=== PATIENT | male | born 1950 | race African-American/Black ===

== ENCOUNTER 2016-05-14 19:50 | Emergency (ER) | payer OTHER ==
[2016-05-14] MEDS ORDERED: Enalaprilat IV* 1.25 MG/ML 2 ML VIAL (2.5 MG) IV ONE ×2 (20:36→21:15)
[2016-05-14 20:53] LABS: Hematocrit 44 % (42-52); Hemoglobin 14.6 g/dl (14.0-18.0); Mean Corpuscular HGB Conc 33 g/dl (31-36); Mean Corpuscular Hemoglobin 31 pg (27-31); Mean Corpuscular Volume 94 fL (80-94); Mean Platelet Volume 9 um3 (7.4-10.4); Red Blood Count 4.72 10^6/ul (4.0-5.4); Red Cell Distribution Width 14 % (10.5-15); White Blood Count 6.1 10^3/ul (3.5-10.8)
[2016-05-14 21:04] LABS: Albumin 3.7 g/dL (3.2-5.2); BUN/Creatinine Ratio 14.1 (8-20); Calcium 8.9 mg/dL (8.6-10.3); EGFR African American 106.9 (>60); EGFR Non-African American 83.1 (>60); Globulin 4.4 g/dL (2-4); Potassium 3.6 mmol/L (3.5-5.0); Total Bilirubin 0.5 mg/dL (0.2-1.0); Total Protein 8.1 g/dL (6.4-8.9)
[2016-05-14 21:05] LABS: Troponin I 0.02 ng/mL (<0.04)
[2016-05-14 21:14] LABS: TSH (Thyroid Stimulating Horm) 5.08 mcIU/mL (0.34-5.60)
[2016-05-14] MEDS ORDERED: Hydrochlorothiazide TAB* 25 MG PO ONE (23:31)
[2016-05-14] MEDS ORDERED: Hydrochlorothiazide TAB* 25 MG ONE (23:33)
[2016-05-14 23:41] VITALS: BP 157/107
--- NOTE | 2016-05-15 11:11 | ED ---
Mj Hanna Michael, scribed for Isac James MD on 05/14/16 at 2043 . Hypertension - HPI Summary HPI Summary: 65 y/o male comes to the ED presenting with high blood pressure this evening. The pt's nurse was bedside and states that his blood pressure gets routinely checked since he started HTN medication on 04/23. The elevated blood pressure was not aggravated by anything. Currently at the ED, the pt's blood pressure is 174/133. The pt was admitted for HTN at the end of March per pt's nurse. - History of Current Complaint Chief Complaint: EDHypertension Stated Complaint: SENT BY DR CELIS-HIGH BLOOD PRESSURE Time Seen by Provider: 05/14/16 20:27 Hx Obtained From: Patient, Medical Records Onset/Duration: Started Hours Ago Timing: Intermittent Aggravating Factor(s): Nothing Associated Signs & Symptoms: Other: - HTN - Allergies/Home Medications Allergies/Adverse Reactions: Allergies Allergy/AdvReac Type Severity Reaction Status Date / Time No Known Allergies Allergy Verified 05/14/16 21:41 Home Medications: Home Medications Levothyroxine TAB* [Synthroid TAB*] 25 mcg PO DAILY 05/14/16 [History Confirmed 05/14/16] PMH/Surg Hx/FS Hx/Imm Hx Endocrine/Hematology History: Denies: Hx Diabetes Cardiovascular History: Reports: Hx Hypertension Denies: Hx Angina, Hx Congestive Heart Failure, Hx Coronary Artery Disease, Hx Hypercholesterolemia, Hx Myocardial Infarction, Hx Valvular Heart Disease Respiratory History: Denies: Hx Asthma, Hx Chronic Obstructive Pulmonary Disease (COPD) GI History: Denies: Other GI Disorders History: Denies: Hx Renal Disease Musculoskeletal History: Reports: 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, R hip pain, Other Musculoskeletal History - L hip replacement Neurological History: Denies: Other Neuro Impairments/Disorders - Surgical History Surgery Procedure, Year, and Place: LT HIP/BILATERAL HERNIA REPAIRS - Immunization History Date of Tetanus Vaccine: unknown Date of Influenza Vaccine: unknown Infectious Disease History: No Infectious Disease History: Denies: Hx Hepatitis, Hx of Known/Suspected MRSA, Traveled Outside the [place] in Last 30 Days - Family History Known Family History: Positive: None Negative: Cardiac Disease Family History: no hx of cancer - Social History Occupation: Unemployed Lives: With Family Alcohol Use: None Substance Use Type: Reports: None Substance Use Comment - Amount & Last Used: hx of cocaine use 8 years ago Smoking Status (MU): Former Smoker Type: Cigarettes Review of Systems Negative: Fever Positive: Other - HTN All Other Systems Reviewed And Are Negative: Yes Physical Exam Triage Information Reviewed: Yes Vital Signs On Initial Exam: Initial Vitals Temp Pulse Resp BP Pulse Ox 98.2 F 70 22 174/133 98 05/14/16 19:53 05/14/16 19:53 05/14/16 19:53 05/14/16 19:53 05/14/16 19:53 Vital Signs Reviewed: Yes Appearance: Positive: Well-Appearing, No Pain Distress Skin: Positive: Warm, Skin Color Reflects Adequate Perfusion, Dry Head/Face: Positive: Normal Head/Face Inspection Eyes: Positive: Normal ENT: Positive: Normal ENT inspection Neck: Positive: Supple, Nontender Respiratory/Lung Sounds: Positive: Clear to Auscultation, Breath Sounds Present Cardiovascular: Positive: RRR Abdomen Description: Positive: Nontender, Soft Bowel Sounds: Positive: Present Musculoskeletal: Positive: Normal Neurological: Positive: Normal Psychiatric: Positive: Normal, Affect/Mood Appropriate Diagnostics - Vital Signs Vital Signs Temp Pulse Resp BP Pulse Ox 05/14/16 19:53 98.2 F 70 22 174/133 98 - Laboratory Lab Results: Lab Results 05/14/16 05/14/16 05/14/16 Range/Units 20:25 20:25 20:25 WBC 6.1 (3.5-10.8) 10^3/ul RBC 4.72 (4.0-5.4) 10^6/ul Hgb 14.6 (14.0-18.0) g/dl Hct 44 (42-52) % MCV 94 (80-94) fL MCH 31 (27-31) pg MCHC 33 (31-36) g/dl RDW 14 (10.5-15) % Plt Count 198 (150-450) 10^3/ul MPV 9 (7.4-10.4) um3 Neut % (Auto) 52.8 (38-83) % Lymph % (Auto) 34.7 (25-47) % [place] % (Auto) 11.2 H (1-9) % Eos % (Auto) 1.0 (0-6) % Baso % (Auto) 0.3 (0-2) % Absolute Neuts (auto) 3.2 (1.5-7.7) 10^3/ul Absolute Lymphs (auto) 2.1 (1.0-4.8) 10^3/ul Absolute Monos (auto) 0.7 (0-0.8) 10^3/ul Absolute Eos (auto) 0.1 (0-0.6) 10^3/ul Absolute Basos (auto) 0 (0-0.2) 10^3/ul Absolute Nucleated RBC 0 10^3/ul Nucleated RBC % 0.1 Sodium 137 (133-145) mmol/L Potassium 3.6 (3.5-5.0) mmol/L Chloride 105 (101-111) mmol/L Carbon Dioxide 26 (22-32) mmol/L Anion Gap 6 (2-11) mmol/L BUN 13 (6-24) mg/dL Creatinine 0.92 (0.67-1.17) mg/dL Est GFR ( Amer) 106.9 (>60) Est GFR (Non-Af Amer) 83.1 (>60) BUN/Creatinine Ratio 14.1 (8-20) Glucose 87 (70-100) mg/dL Lactic Acid 1.0 (0.5-2.0) mmol/L Calcium 8.9 (8.6-10.3) mg/dL Total Bilirubin 0.50 (0.2-1.0) mg/dL AST 52 H (13-39) U/L ALT 92 H (7-52) U/L Alkaline Phosphatase 50 (34-104) U/L Troponin I 0.02 (<0.04) ng/mL Total Protein 8.1 (6.4-8.9) g/dL Albumin 3.7 (3.2-5.2) g/dL Globulin 4.4 H (2-4) g/dL Albumin/Globulin Ratio 0.8 L (1-3) TSH 5.08 (0.34-5.60) mcIU/mL Result Diagrams: 05/14/16 20:25 05/14/16 20:25 Lab Statement: Any lab studies that have been ordered have been reviewed, and results considered in the medical decision making process. - EKG EK EKG Rhythm: Sinus Rhythm - 63 bpm EKG Interpretation: unchanged 03/28/16. LVH with strain pattern Hypertension Course/Dx - Course Course Of Treatment: J Luis Jackson presented asymptomatic after his checked his BP and found it to be high at home. He was found incidentally to have high BP about a month jes and started on medications. According to Dr. Elizabeth's note he was D/C'd on atenolol, hydrochlorthiazide and amlodipine but the patient brought in his bottles and there is no hydrochlorthiazide. There was no evidence of end organ damage on studies done here in the ED including ecg and labs and he remained aymptomatic. He responded to vasotec and I sent him a script for the HCTZ. - Diagnoses Provider Diagnoses: Hypertension Discharge - Discharge Plan Condition: Stable Disposition: HOME Prescriptions: Hydrochlorothiazide TAB* [Hydrodiuril TAB*] 25 mg PO DAILY #20 tab Patient Education Materials: Hypertension (ED) Referrals: Paul Celis MD [Primary Care Provider] - Additional Instructions: You will follow up with Dr. Celis within the next 2-3 days. The documentation as recorded by the Mj calderon Michael accurately reflects the service I personally performed and the decisions made by me, Isac James MD.
== END 2016-05-14 23:39 | disposition home or self-care (01) ==
LOC: ED 19:50
DX: I10 Essential (primary) hypertension (principal); Z87.891 Personal history of nicotine dependence
CPT/HCPCS: 36415; 80053; 83605; 84443; 84484; 85025; 93005; 96374; 99283; A9270-GY

== ENCOUNTER 2017-02-04 15:41 | Emergency (ER) | payer OTHER ==
[2017-02-04] MEDS ORDERED: Metoprolol Tartrate IV* 1 MG/ML 5 ML VIAL IV ONE (17:36)
[2017-02-04 18:00] LABS: Hematocrit 41 % (42-52); Mean Corpuscular HGB Conc 34 g/dl (31-36); Mean Corpuscular Hemoglobin 32 pg (27-31); Mean Corpuscular Volume 94 fL (80-94); Mean Platelet Volume 8 um3 (7.4-10.4); Red Blood Count 4.38 10^6/ul (4.0-5.4); Red Cell Distribution Width 14 % (10.5-15); White Blood Count 5.5 10^3/ul (3.5-10.8)
[2017-02-04 18:17] LABS: Albumin 3.7 g/dL (3.2-5.2); BUN/Creatinine Ratio 12.5 (8-20); C Reactive Protein 20.04 mg/L (< 5.00); EGFR African American 101.4 (>60); EGFR Non-African American 78.9 (>60); Globulin 4.5 g/dL (2-4); Potassium 3.2 mmol/L (3.5-5.0); Total Bilirubin 0.6 mg/dL (0.2-1.0); Total Protein 8.2 g/dL (6.4-8.9)
[2017-02-04 18:18] LABS: Troponin I 0.02 ng/mL (<0.04)
--- NOTE | 2017-02-04 18:35 | RAD ---
INDICATION: Congestion, shortness of breath. COMPARISON: January 28, 2017 CT abdomen. December 27, 2016 chest radiograph. TECHNIQUE: Dual energy PA and routine lateral views of the chest were obtained. REPORT: Clear lungs and pleural spaces. Negative for pneumothorax. The heart, pulmonary vasculature, and mediastinal contours are unremarkable. Unremarkable osseous structures and soft tissue contours. IMPRESSION: No evidence for acute intrathoracic disease.
[2017-02-04] MEDS ORDERED: amLODIPine TAB* 5 MG PO ONE ×2 (18:49→21:28)
[2017-02-04] MEDS ORDERED: Hydrochlorothiazide TAB* 50 MG PO ONE (18:49)
--- NOTE | 2017-02-04 19:18 | ED ---
Triston Hanna Nilda, scribed for Isac James MD on 02/04/17 at 1741 . Respiratory - HPI Summary HPI Summary: This patient is a 66 year old M presenting to [facility] accompanied by girlfriend with a chief complaint of intermittent dyspnea for the past 2-3 weeks. The patient rates the pain 9/10 in severity. Symptoms aggravated by recumbent position and alleviated by upright position. Patient reports left back pain and occasional cough. Patient denies edema, rhinorrhea, CP, and recent trauma. Last night patient could not sleep because of orthopnea. Per girlfriend, patient is currently on blood pressure and fluid retention medications. PMHx includes HTN. - History of Current Complaint Chief Complaint: EDUpperRespComplaint Stated Complaint: SOB/CANT SLEEP Time Seen by Provider: 02/04/17 17:18 Hx Obtained From: Patient, Family/Collateral Clerk - girlfriend Onset/Duration: Gradual Onset, Lasting Weeks - 2-3 weeks Timing: Intermittent Episodes Lasting: - until patient gets up from lying down Current Severity: Severe Pain Intensity: 9 Character: Cough (Nonproductive), Orthopnea Sputum Amount: None Aggravating Factor(s): Recumbent Position Alleviating Factor(s): Upright Position - Allergy/Home Medications Allergies/Adverse Reactions: Allergies Allergy/AdvReac Type Severity Reaction Status Date / Time No Known Allergies Allergy Verified 05/14/16 21:41 PMH/Surg Hx/FS Hx/Imm Hx Endocrine/Hematology History: Denies: Hx Diabetes Cardiovascular History: Reports: Hx Hypertension Denies: Hx Angina, Hx Congestive Heart Failure, Hx Coronary Artery Disease, Hx Hypercholesterolemia, Hx Myocardial Infarction, Hx Valvular Heart Disease Respiratory History: Denies: Hx Asthma, Hx Chronic Obstructive Pulmonary Disease (COPD) GI History: Denies: Other GI Disorders History: Denies: Hx Renal Disease Musculoskeletal History: Reports: 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, R hip pain, Other Musculoskeletal History - L hip replacement Neurological History: Denies: Other Neuro Impairments/Disorders - Cancer History Cancer Type, Location and Year: prostate - Surgical History Surgery Procedure, Year, and Place: LT HIP/BILATERAL HERNIA REPAIRS - Immunization History Date of Tetanus Vaccine: unknown Date of Influenza Vaccine: unknown Infectious Disease History: No Infectious Disease History: Denies: Hx Hepatitis, Hx of Known/Suspected MRSA, Traveled Outside the [place] in Last 30 Days - Family History Known Family History: Positive: Other - no hx of cancer Negative: Cardiac Disease, Hypertension, Diabetes Family History: no hx of cancer - Social History Alcohol Use: None Substance Use Type: Reports: None Substance Use Comment - Amount & Last Used: hx of cocaine use 8 years ago Smoking Status (MU): Former Smoker Type: Cigarettes Review of Systems Positive: Other - negative recent trauma Negative: Nasal Discharge Negative: Chest Pain Positive: Cough, Other - orthopnea Positive: Other - left back pain. Negative: Edema All Other Systems Reviewed And Are Negative: Yes Physical Exam Triage Information Reviewed: Yes Vital Signs On Initial Exam: Initial Vitals Temp Pulse Resp BP Pulse Ox 98.4 F 82 19 160/126 93 02/04/17 15:44 02/04/17 15:44 02/04/17 15:44 02/04/17 15:44 02/04/17 15:44 Vital Signs Reviewed: Yes Appearance: Positive: Well-Appearing, No Pain Distress, Obese Skin: Positive: Warm, Skin Color Reflects Adequate Perfusion, Dry Head/Face: Positive: Normal Head/Face Inspection Eyes: Positive: Normal ENT: Positive: Normal ENT inspection Neck: Positive: Supple, Nontender Respiratory/Lung Sounds: Positive: Clear to Auscultation, Breath Sounds Present Cardiovascular: Positive: RRR. Negative: Leg Edema Left, Leg Edema Right Abdomen Description: Positive: Nontender, Soft Bowel Sounds: Positive: Present Musculoskeletal: Positive: Normal. Negative: Edema Left, Edema Right Neurological: Positive: Normal Psychiatric: Positive: Normal, Affect/Mood Appropriate Diagnostics - Vital Signs Vital Signs Temp Pulse Resp BP Pulse Ox 02/04/17 15:44 98.4 F 82 19 160/126 93 - Laboratory Lab Results: Lab Results 02/04/17 02/04/17 02/04/17 Range/Units 17:45 17:45 17:45 WBC 5.5 (3.5-10.8) 10^3/ul RBC 4.38 (4.0-5.4) 10^6/ul Hgb 14.0 (14.0-18.0) g/dl Hct 41 L (42-52) % MCV 94 (80-94) fL MCH 32 H (27-31) pg MCHC 34 (31-36) g/dl RDW 14 (10.5-15) % Plt Count 212 (150-450) 10^3/ul MPV 8 (7.4-10.4) um3 Neut % (Auto) 61.0 (38-83) % Lymph % (Auto) 24.7 L (25-47) % [place] % (Auto) 13.3 H (1-9) % Eos % (Auto) 0.7 (0-6) % Baso % (Auto) 0.3 (0-2) % Absolute Neuts (auto) 3.4 (1.5-7.7) 10^3/ul Absolute Lymphs (auto) 1.4 (1.0-4.8) 10^3/ul Absolute Monos (auto) 0.7 (0-0.8) 10^3/ul Absolute Eos (auto) 0 (0-0.6) 10^3/ul Absolute Basos (auto) 0 (0-0.2) 10^3/ul Absolute Nucleated RBC 0 10^3/ul Nucleated RBC % 0.1 INR (Anticoag Therapy) (0.89-1.11) D-Dimer, Quantitative (Less Than 230) ng/mL Sodium 137 (133-145) mmol/L Potassium 3.2 L (3.5-5.0) mmol/L Chloride 103 (101-111) mmol/L Carbon Dioxide 29 (22-32) mmol/L Anion Gap 5 (2-11) mmol/L BUN 12 (6-24) mg/dL Creatinine 0.96 (0.67-1.17) mg/dL Est GFR ( Amer) 101.4 (>60) Est GFR (Non-Af Amer) 78.9 (>60) BUN/Creatinine Ratio 12.5 (8-20) Glucose 93 (70-100) mg/dL Lactic Acid (0.5-2.0) mmol/L Calcium 9.0 (8.6-10.3) mg/dL Total Bilirubin 0.60 (0.2-1.0) mg/dL AST 33 (13-39) U/L ALT 49 (7-52) U/L Alkaline Phosphatase 47 (34-104) U/L Troponin I 0.02 (<0.04) ng/mL C-Reactive Protein 20.04 H (< 5.00) mg/L B-Natriuretic Peptide 40 ( - 100) pg/mL Total Protein 8.2 (6.4-8.9) g/dL Albumin 3.7 (3.2-5.2) g/dL Globulin 4.5 H (2-4) g/dL Albumin/Globulin Ratio 0.8 L (1-3) 02/04/17 02/04/17 Range/Units 17:45 17:45 WBC (3.5-10.8) 10^3/ul RBC (4.0-5.4) 10^6/ul Hgb (14.0-18.0) g/dl Hct (42-52) % MCV (80-94) fL MCH (27-31) pg MCHC (31-36) g/dl RDW (10.5-15) % Plt Count (150-450) 10^3/ul MPV (7.4-10.4) um3 Neut % (Auto) (38-83) % Lymph % (Auto) (25-47) % [place] % (Auto) (1-9) % Eos % (Auto) (0-6) % Baso % (Auto) (0-2) % Absolute Neuts (auto) (1.5-7.7) 10^3/ul Absolute Lymphs (auto) (1.0-4.8) 10^3/ul Absolute Monos (auto) (0-0.8) 10^3/ul Absolute Eos (auto) (0-0.6) 10^3/ul Absolute Basos (auto) (0-0.2) 10^3/ul Absolute Nucleated RBC 10^3/ul Nucleated RBC % INR (Anticoag Therapy) 0.93 (0.89-1.11) D-Dimer, Quantitative 304 H (Less Than 230) ng/mL Sodium (133-145) mmol/L Potassium (3.5-5.0) mmol/L Chloride (101-111) mmol/L Carbon Dioxide (22-32) mmol/L Anion Gap (2-11) mmol/L BUN (6-24) mg/dL Creatinine (0.67-1.17) mg/dL Est GFR ( Amer) (>60) Est GFR (Non-Af Amer) (>60) BUN/Creatinine Ratio (8-20) Glucose (70-100) mg/dL Lactic Acid 1.4 (0.5-2.0) mmol/L Calcium (8.6-10.3) mg/dL Total Bilirubin (0.2-1.0) mg/dL AST (13-39) U/L ALT (7-52) U/L Alkaline Phosphatase (34-104) U/L Troponin I (<0.04) ng/mL C-Reactive Protein (< 5.00) mg/L B-Natriuretic Peptide ( - 100) pg/mL Total Protein (6.4-8.9) g/dL Albumin (3.2-5.2) g/dL Globulin (2-4) g/dL Albumin/Globulin Ratio (1-3) Result Diagrams: 02/04/17 17:45 02/04/17 17:45 Lab Statement: Any lab studies that have been ordered have been reviewed, and results considered in the medical decision making process. - Radiology CXR Radiology Interpretation Completed By: Radiologist - No evidence of acute intrathoracic disease. ED Physician reviewed and agrees with this report. - EKG 1802 Cardiac Rate: NL - 68 bpm EKG Rhythm: Sinus Rhythm EKG Interpretation: LVH EKG Comparison: No Significant Change - from 05/14/2016 Disposition - Course Course Of Treatment: Mr. Jackson presented with a C/O SOB mostly when he is lying down for the last couple of weeks. He hasn't been taking his blood pressure medications and he presented quite high. His d-dimer was a bit elevated and he is awaiting CTA. Assuming he has no PE, I expect he will go home to F/U with his PMD for BP control. - Diagnoses Provider Diagnoses: Hypertension Discharge - Discharge Plan Condition: Stable Disposition: OTHER Discharge Disposition Comment: Change of Shift Referrals: Paul Celis MD [Primary Care Provider] - The documentation as recorded by the Triston calderon Nilda accurately reflects the service I personally performed and the decisions made by me, Isac James MD.
[2017-02-04] MEDS ORDERED: Iohexol 350* (CONTRAST) 500 ML MDV IV ONE (19:26)
[2017-02-04 19:36] LABS: Urine Bilirubin Negative (Negative); Urine Glucose Negative (Negative); Urine Nitrite Negative (Negative)
--- NOTE | 2017-02-04 20:20 | RAD ---
INDICATION: Difficulty breathing. Pain to the RIGHT side of the back. COMPARISON: February 04, 2017 chest radiograph and January 28, 2017 CT abdomen. TECHNIQUE: Multidetector CT images were obtained from the lung apices to the upper abdomen with 81 mL Omnipaque 350 IV contrast. Pulmonary angiogram protocol. Multiplanar reformation including with maximum intensity projection. REPORT: Minimal bibasilar dependent atelectasis. Negative for alveolar consolidation suspicious for pneumonia, focal pulmonary lesions, pleural effusions, pneumothorax. Negative for thoracic lymphadenopathy. Small calcified RIGHT hilar and mediastinal lymph nodes. Negative for cardiomegaly or pericardial effusion. Normal diameter thoracic aorta. No evidence for dissection of the thoracic aorta. No filling defects are identified from the main to the subsegmental pulmonary arteries to indicate presence of a pulmonary embolism. Unremarkable Limited images through the upper abdomen. IMPRESSION: 1. No evidence for pulmonary embolism. 2. No evidence for pneumonia. 3. Stigmata of prior granulomatous disease. 4. No acute pathologic process of the thorax evident.
[2017-02-04] MEDS ORDERED: Atenolol TAB* 50 MG PO ONE (21:27)
[2017-02-04] MEDS ORDERED: Hydrochlorothiazide TAB* 25 MG PO ONE (21:27)
[2017-02-04 21:52] VITALS: BP 171/102
--- NOTE | 2017-02-06 12:51 | ED ---
I, Bhupinder Holguin, scribed for Kellee Jett MD on 02/04/17 at 2038 . Progress - Progress Note Progress Note: This is a 66yo male, signout pt from Dr. James. Pt has been seen for CC of SOB for 2-3 weeks with right flank/ right back pain. Pt states that his pain is now better. Denies any fever but girlfriend reports pt has been feeling warm. He has been recently dxed with Prostate CA but hasnt yet started any Tx. Pt is in the process of setting up appointments for follow up and further evaluations. PMHx of HTN. Pending CTA Chest report. - Results/Orders Results/Orders: CTA Chest Report IMPRESSION: 1. No evidence for pulmonary embolism. 2. No evidence for pneumonia. 3. Stigmata of prior granulomatous disease. 4. No acute pathologic process of the thorax evident. Re-Evaluation - Re-Evaluation First Eval Re-Evaluation Time: 20:30 Change: Improved - Hemodynamically stable. SOB improved. Pending CTA Chest report. Will dispo after. Second Eval Re-Evaluation Time: 21:23 Comment: Reviewed with pt his lab and imaging results. Discussed follow up plans with Dr. Gore. Course/Dx - Course Course Of Treatment: Reviewed pts medication and allergy lists. High Blood pressure noted. - Diagnoses Provider Diagnoses: Hypertension, SOB (shortness of breath) The documentation as recorded by the Ezio calderon Benjamin accurately reflects the service I personally performed and the decisions made by me, Kellee Jett MD.
== END 2017-02-04 21:52 ==
LOC: ED 15:41
DX: I10 Essential (primary) hypertension (principal); R06.02 Shortness of breath; R05 Cough; Z87.891 Personal history of nicotine dependence
CPT/HCPCS: 36415; 71020; 71275; 80053; 81003; 83605; 83880; 84484; 85025; 85379; 85610; 86140; 93005; 96374; 99284; A9270-GY; Q9967

== ENCOUNTER 2017-02-21 16:57 | Emergency (ER) | payer OTHER ==
--- NOTE | 2017-02-21 17:49 | RAD ---
INDICATION: Short of breath COMPARISON: Chest x-ray February 04, 2017 TECHNIQUE: PA and lateral dual-energy views were obtained. FINDINGS: Bones/Soft Tissues: There are no acute bony findings. Cardiomediastinal: The cardiomediastinal silhouette is normal. Lungs: There are no infiltrates. Pleura: There are no pleural effusions. Other: None IMPRESSION: NO ACTIVE DISEASE.
[2017-02-21 18:00] LABS: Hematocrit 44 % (42-52); Hemoglobin 14.8 g/dl (14.0-18.0); Mean Corpuscular HGB Conc 33 g/dl (31-36); Mean Corpuscular Hemoglobin 31 pg (27-31); Mean Corpuscular Volume 94 fL (80-94); Mean Platelet Volume 9 um3 (7.4-10.4); Red Blood Count 4.72 10^6/ul (4.0-5.4); Red Cell Distribution Width 14 % (10.5-15); White Blood Count 5.6 10^3/ul (3.5-10.8)
[2017-02-21 18:14] LABS: Troponin I 0.02 ng/mL (<0.04)
[2017-02-21] MEDS ORDERED: Albuterol/Ipratropium NEB.SOL* Albuterol 2.5 MG/Ipratropium 0.5 MG 3 ML INH ONE ×2 (18:20→19:52)
[2017-02-21 18:22] LABS: Albumin 3.7 g/dL (3.2-5.2); BUN/Creatinine Ratio 15.3 (8-20); Calcium 9.1 mg/dL (8.6-10.3); EGFR African American 85.8 (>60); EGFR Non-African American 66.7 (>60); Globulin 4.7 g/dL (2-4); Potassium 3.2 mmol/L (3.5-5.0); Total Bilirubin 0.6 mg/dL (0.2-1.0); Total Protein 8.4 g/dL (6.4-8.9)
[2017-02-21] MEDS ORDERED: predniSONE TAB* 20 MG PO ONE (18:35)
--- NOTE | 2017-02-21 20:40 | ED ---
Wilson Hanna Angela, scribed for Fern Cerna MD on 02/21/17 at 1726 . Shortness of Breath - HPI Summary HPI Summary: This pt is a 66 y/o male accompanied by his presenting to [facility] c/o SOB for 2-3 months. Pt reports he was at his PCP's (Dr. Celis) office today and his PCP noticed his oxygen was low and had hypoxia with exertion. Pt notes he walks every day. He denies LE edema, LE pain, chest pain. She denies any PMHx of AR or CVA. PMHx: HTN, prostate CA. Pt notes he has surgery in 1 month for his prostate CA. Pt is currently taking anti-hypertensive medications. Pt's PCP is Dr. Celis. - History of Current Complaint Chief Complaint: EDShortnessOfBreath Time Seen by Provider: 02/21/17 17:13 Hx Obtained From: Patient Onset/Duration: Lasting Weeks, Still Present Timing: Constant Aggrevating Factors: Other - exertion Alleviating Factors: Nothing - Allergy/Home Medications Allergies/Adverse Reactions: Allergies Allergy/AdvReac Type Severity Reaction Status Date / Time No Known Allergies Allergy Verified 02/21/17 17:13 Home Medications: Home Medications Hydrocodone/Acetamin 10/325(NF [Anderson 10/325 (NF)] 1 tab PO Q8HR PRN 02/21/17 [ History Confirmed 02/21/17] Mometasone/Formoter 200/5 MDI* [Dulera 200/5 MDI*] 2 puff INH BID 02/21/17 [ History Confirmed 02/21/17] Potassium Chloride Microencaps [Klor-Con M20] 20 meq PO DAILY 02/21/17 [History Confirmed 02/21/17] Zolpidem TAB* [Ambien TAB*] 5 - 10 mg PO BEDTIME PRN 02/21/17 [History Confirmed 02/21/17] amLODIPine TAB* [Norvasc 5 mg TAB*] 5 mg PO DAILY 02/21/17 [History Confirmed ] PMH/Surg Hx/FS Hx/Imm Hx Endocrine/Hematology History: Denies: Hx Diabetes Cardiovascular History: Reports: Hx Hypertension Denies: Hx Angina, Hx Congestive Heart Failure, Hx Coronary Artery Disease, Hx Hypercholesterolemia, Hx Myocardial Infarction, Hx Valvular Heart Disease Respiratory History: Denies: Hx Asthma, Hx Chronic Obstructive Pulmonary Disease (COPD) GI History: Denies: Other GI Disorders History: Denies: Hx Renal Disease Musculoskeletal History: Reports: 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, R hip pain, Other Musculoskeletal History - L hip replacement Neurological History: Denies: Other Neuro Impairments/Disorders - Cancer History Cancer Type, Location and Year: prostate - Surgical History Surgery Procedure, Year, and Place: LT HIP/BILATERAL HERNIA REPAIRS - Immunization History Date of Tetanus Vaccine: unknown Date of Influenza Vaccine: unknown Infectious Disease History: No Infectious Disease History: Denies: Hx Hepatitis, Hx of Known/Suspected MRSA, Traveled Outside the [place] in Last 30 Days - Family History Known Family History: Positive: Other - no hx of cancer Negative: Cardiac Disease, Hypertension, Diabetes Family History: no hx of cancer - Social History Lives: Alone Alcohol Use: None Substance Use Type: Reports: None Substance Use Comment - Amount & Last Used: hx of cocaine use 8 years ago Smoking Status (MU): Former Smoker Type: Cigarettes Review of Systems Negative: Fever, Chills Negative: Chest Pain Positive: Shortness Of Breath Negative: Edema, Other - LE pain All Other Systems Reviewed And Are Negative: Yes Physical Exam - Summary Physical Exam Summary: General: Well appearing, no pain distress Skin: Warm, Skin Color Reflects Adequate Perfusion, Dry Eyes: EOMI, LAURA ENT: Pharynx normal, TMs normal Neck: Supple, nontender Respiratory: CTA, breath sounds present, no rhonchi, no wheezes, no rales Cardiovascular: RRR, no murmur, no rub, no gallop Abdomen: Soft, nontender, Non-distended, no guarding, no rebound Bowel: Present Musculoskeletal: JUANITA, No edema Neuro: Sensory/motor intact, A&Ox3, CN intact 2-12 Psych: Affect/mood appropriate Triage Information Reviewed: Yes Vital Signs On Initial Exam: Initial Vitals Temp Pulse Resp BP Pulse Ox 98 F 89 22 147/104 94 02/21/17 17:01 02/21/17 17:01 02/21/17 17:01 02/21/17 17:01 02/21/17 17:01 Vital Signs Reviewed: Yes Diagnostics - Vital Signs Vital Signs Temp Pulse Resp BP Pulse Ox 02/21/17 17:01 98 F 89 22 147/104 94 - Laboratory Lab Results: Lab Results 02/21/17 02/21/17 02/21/17 Range/Units 17:45 17:45 17:45 WBC 5.6 (3.5-10.8) 10^3/ul RBC 4.72 (4.0-5.4) 10^6/ul Hgb 14.8 (14.0-18.0) g/dl Hct 44 (42-52) % MCV 94 (80-94) fL MCH 31 (27-31) pg MCHC 33 (31-36) g/dl RDW 14 (10.5-15) % Plt Count 235 (150-450) 10^3/ul MPV 9 (7.4-10.4) um3 Neut % (Auto) 55.8 (38-83) % Lymph % (Auto) 32.8 (25-47) % Aurora % (Auto) 9.7 H (1-9) % Eos % (Auto) 0.9 (0-6) % Baso % (Auto) 0.8 (0-2) % Absolute Neuts (auto) 3.1 (1.5-7.7) 10^3/ul Absolute Lymphs (auto) 1.8 (1.0-4.8) 10^3/ul Absolute Monos (auto) 0.5 (0-0.8) 10^3/ul Absolute Eos (auto) 0.1 (0-0.6) 10^3/ul Absolute Basos (auto) 0 (0-0.2) 10^3/ul Absolute Nucleated RBC 0 10^3/ul Nucleated RBC % 0 Sodium 136 (133-145) mmol/L Potassium 3.2 L (3.5-5.0) mmol/L Chloride 99 L (101-111) mmol/L Carbon Dioxide 31 (22-32) mmol/L Anion Gap 6 (2-11) mmol/L BUN 17 (6-24) mg/dL Creatinine 1.11 (0.67-1.17) mg/dL Est GFR ( Amer) 85.8 (>60) Est GFR (Non-Af Amer) 66.7 (>60) BUN/Creatinine Ratio 15.3 (8-20) Glucose 102 H (70-100) mg/dL Lactic Acid (0.5-2.0) mmol/L Calcium 9.1 (8.6-10.3) mg/dL Total Bilirubin 0.60 (0.2-1.0) mg/dL AST 54 H (13-39) U/L ALT 86 H (7-52) U/L Alkaline Phosphatase 46 (34-104) U/L Troponin I 0.02 (<0.04) ng/mL B-Natriuretic Peptide 27 ( - 100) pg/mL Total Protein 8.4 (6.4-8.9) g/dL Albumin 3.7 (3.2-5.2) g/dL Globulin 4.7 H (2-4) g/dL Albumin/Globulin Ratio 0.8 L (1-3) 10/26/17 Range/Units 17:45 WBC (3.5-10.8) 10^3/ul RBC (4.0-5.4) 10^6/ul Hgb (14.0-18.0) g/dl Hct (42-52) % MCV (80-94) fL MCH (27-31) pg MCHC (31-36) g/dl RDW (10.5-15) % Plt Count (150-450) 10^3/ul MPV (7.4-10.4) um3 Neut % (Auto) (38-83) % Lymph % (Auto) (25-47) % Aurora % (Auto) (1-9) % Eos % (Auto) (0-6) % Baso % (Auto) (0-2) % Absolute Neuts (auto) (1.5-7.7) 10^3/ul Absolute Lymphs (auto) (1.0-4.8) 10^3/ul Absolute Monos (auto) (0-0.8) 10^3/ul Absolute Eos (auto) (0-0.6) 10^3/ul Absolute Basos (auto) (0-0.2) 10^3/ul Absolute Nucleated RBC 10^3/ul Nucleated RBC % Sodium (133-145) mmol/L Potassium (3.5-5.0) mmol/L Chloride (101-111) mmol/L Carbon Dioxide (22-32) mmol/L Anion Gap (2-11) mmol/L BUN (6-24) mg/dL Creatinine (0.67-1.17) mg/dL Est GFR ( Amer) (>60) Est GFR (Non-Af Amer) (>60) BUN/Creatinine Ratio (8-20) Glucose (70-100) mg/dL Lactic Acid 1.3 (0.5-2.0) mmol/L Calcium (8.6-10.3) mg/dL Total Bilirubin (0.2-1.0) mg/dL AST (13-39) U/L ALT (7-52) U/L Alkaline Phosphatase (34-104) U/L Troponin I (<0.04) ng/mL B-Natriuretic Peptide ( - 100) pg/mL Total Protein (6.4-8.9) g/dL Albumin (3.2-5.2) g/dL Globulin (2-4) g/dL Albumin/Globulin Ratio (1-3) Result Diagrams: 02/21/17 17:45 02/21/17 17:45 Lab Statement: Any lab studies that have been ordered have been reviewed, and results considered in the medical decision making process. - Radiology Chest XR Xray Interpretation: No Acute Changes - IMPRESSION: No active disease. ED physician has reviewed this radiology report and agrees. Radiology Interpretation Completed By: Radiologist - EKG 1748 Cardiac Rate: NL - 61 EKG Rhythm: Sinus Rhythm EKG Interpretation: Non-specific T wave changes EKG Comparison: No Significant Change - from prior EKG on 02/04/17. Re-Evaluation - Re-Evaluation First Eval Re-Evaluation Time: 19:50 Comment: Pt was ambulated and his O2 sat went down to the 85%'s. Will give the pt one more inhalation treatment. Course/Dx - Course Course Of Treatment: pt denied any sob from the onset, but does have a copd history and was a smoker until last year. He was given 2 nebs and does desaturate into the 80's on long ambulation with quick recovery after ambulation stops. 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 He denies cough, or fevers. his labs and cxr are normal he was started on prednisone and will be staying with her for a few days - Diagnoses Provider Diagnoses: COPD exacerbation Discharge - Discharge Plan Condition: Stable Disposition: HOME Prescriptions: predniSONE TAB* [Deltasone TAB*] 50 mg PO DAILY #4 tab Forms: *Gen. Provider Communication Referrals: Paul Celis MD [Primary Care Provider] - The documentation as recorded by the Wilson calderon Angela accurately reflects the service I personally performed and the decisions made by me, Fern Cerna MD.
[2017-02-21 20:47] VITALS: BP 111/51
== END 2017-02-21 21:00 | disposition home or self-care (01) ==
LOC: ED 16:57
DX: J44.1 Chronic obstructive pulmonary disease with (acute) exacerbation (principal); R06.02 Shortness of breath; Z86.79 Personal history of other diseases of the circulatory system; Z85.46 Personal history of malignant neoplasm of prostate
CPT/HCPCS: 36415; 71020; 80053; 83605; 83880; 84484; 85025; 87040; 93005; 94640; 94760; 99283; A9270-GY; J7512